=== PATIENT | female | born 1985 | race African-American/Black ===

== ENCOUNTER 2017-09-19 03:32 | Emergency (ER) | payer SELFPAY ==
[~2017-09-19] VITALS: Ht 154.9 cm; Wt 46.8 kg
[~2017-09-19 03:32] MED LIST: Z.0.NO CURRENT MEDS
[2017-09-19 03:36] VITALS: BP 167/82; PULSE 101; RESP 18; TEMP 98.3; O2SAT 100
[2017-09-19 03:53] VITALS: BP 163/91; PULSE 93; RESP 16; O2SAT 100
--- NOTE | 2017-09-19 04:23 | PD ---
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 There was no vertigo, simply lightheaded. She apparently had an elevated blood pressure at work and, after rest, she was sent to the emergency department. She states she is getting over a cold and has a mild cough but no nausea, fever, headache, shortness of breath or chest pain. She denies any focal neurologic change. She states she has been drinking plenty of liquids and is not dehydrated. She denies any sore throat or ear pain. The patient is on her period and the patient does have heavy periods. In this part of her menstrual period, day 3 she does not normally get lightheaded. She occasionally gets lightheaded on day 1 of her menstrual period. She has been replacing her fluids with only water. [facility] Past Medical History Medical History: Denies Significant Hx Diminished Hearing: No Immunizations Current: Yes Tetanus Vaccination: Never Vaccinated Influenza Vaccination: No ?: Not LMP: 09/16/17 : 2 Para: 2 Miscarriage: 0 : 0 Tubal Ligation: Yes (2007) Past Surgical History Section: Yes (2007) Social History Alcohol Use: No Tobacco Use: No Substance Use: No Allergies-Medications (Allergen,Severity, Reaction): Coded Allergies: amoxicillin (Unverified Allergy, Severe, HIVES, 01/20/17) Reported Meds & Prescriptions Reported Meds & Active Scripts Active Reported No [facility] Med[facility] (Miscellaneous Medication) [facility] Review of Systems Except as stated in HPI: all other systems reviewed are Neg Physical Exam Narrative GENERAL: Well-nourished, well-developed patient in no apparent distress. Her vital signs initially showed blood pressure 167/82 but repeat is 148/82. The heart rate initially is 101 but the patient now has a heart rate in the 70s. Her oximetry is 100%. SKIN: Focused skin assessment warm/dry. HEAD: Normocephalic. EYES: No scleral icterus. No injection or drainage. NECK: Supple, trachea midline. No JVD or lymphadenopathy. CARDIOVASCULAR: Regular rate and rhythm without murmurs, gallops, or rubs. RESPIRATORY: Breath sounds equal bilaterally. No accessory muscle use. Lungs clear to auscultation bilaterally. GASTROINTESTINAL: Abdomen soft, non-tender, nondistended. MUSCULOSKELETAL: No cyanosis, or edema. BACK: Nontender without obvious deformity. No CVA tenderness. Data Data Last Documented VS Vital Signs Date Time Temp Pulse Resp B/P (MAP) Pulse Ox O2 Delivery O2 Flow Rate FiO2 09/19/17 04:26 74 16 128/89 (102) 74 16 153/88 (109) 86 16 146/87 (106) 09/19/17 03:53 100 Room Air 09/19/17 03:36 98.3 Orders Orders Electrocardiogram (09/19/17 04:02) Orthostatic Vital Signs (09/19/17 04:02) Urinalysis - C+S If Indicated (09/19/17 04:23) Complete Blood Count With Diff (09/19/17 04:45) Basic Metabolic Panel (Bmp) (09/19/17 04:45) Labs Laboratory Tests Test 09/19/17 04:23 09/19/17 04:53 Urine Color YELLOW Urine Turbidity CLEAR Urine pH 7.0 Urine Specific [place] LESS/EQUAL 1.005 Urine Protein NEG mg/dL Urine Glucose (UA) NEG mg/dL Urine Ketones NEG mg/dL Urine Occult Blood LARGE Urine Nitrite NEG Urine Bilirubin NEG Urine Urobilinogen 0.2 MG/DL Urine Leukocyte Esterase NEG Urine RBC 0-3 /hpf Urine WBC 0-2 /hpf Urine Squamous Epithelial Cells 0-5 /hpf Urine Bacteria NONE /hpf Microscopic Urinalysis Comment CULT NOT INDICATED White Blood Count 5.4 TH/MM3 Red Blood Count 4.00 MIL/MM3 Hemoglobin 11.3 GM/DL Hematocrit 34.8 % Mean Corpuscular Volume 87.0 FL Mean Corpuscular Hemoglobin 28.2 PG Mean Corpuscular Hemoglobin Concent 32.4 % Red Cell Distribution Width 13.1 % Platelet Count 304 TH/MM3 Mean Platelet Volume 7.7 FL Neutrophils (%) (Auto) 61.7 % Lymphocytes (%) (Auto) 25.8 % Monocytes (%) (Auto) 10.0 % Eosinophils (%) (Auto) 1.9 % Basophils (%) (Auto) 0.6 % Neutrophils # (Auto) 3.4 TH/MM3 Lymphocytes # (Auto) 1.4 TH/MM3 Monocytes # (Auto) 0.5 TH/MM3 Eosinophils # (Auto) 0.1 TH/MM3 Basophils # (Auto) 0.0 TH/MM3 CBC Comment DIFF FINAL Differential Comment Blood Urea Nitrogen 15 MG/DL Creatinine 0.90 MG/DL Random Glucose 105 MG/DL Calcium Level 8.8 MG/DL Sodium Level 139 MEQ/L Potassium Level 3.8 MEQ/L Chloride Level 107 MEQ/L Carbon Dioxide Level 26.2 MEQ/L Anion Gap 6 MEQ/L Estimat Glomerular Filtration Rate 89 ML/MIN MDM Medical Decision Making Medical Screen Exam Complete: Yes Emergency Medical Condition: Yes Medical Record Reviewed: Yes Interpretation(s) Orthostatics lying down show pulse rate of 74 with blood pressure 128/89 and respirations 16 and 100% oximetry. Sitting up the patient did have positive lightheadedness with a blood pressure 153/88, pulse rate of 7416 respirations and 100% standing the patient did not get lightheaded, her blood pressure is 146 /87, pulse rate of 86 with respirations 16 and 100% oximetry. The urine shows yellow color which is very light yellow and clear turbidity and specific gravity less than or equal to 1.005. There is a large amount of occult blood and 0-3 red cells with 0-2 white cells no bacteria and culture is not indicated. The basic metabolic profile is normal. Differential Diagnosis Dehydration, postural hypotension, uncontrolled blood pressure, viral syndrome, other infectious Narrative Course The patient prefers any blood work an EKG be done at her doctor's office. The patient's orthostatics did not show any significant blood pressure drop or increase in pulse but she did get lightheaded going from the lying to sitting position. She never experienced vertigo. The blood pressure is only minimally elevated. And the diastolic consistently seems to be running around 82. She does have a mild nonproductive cough which he states is left over from her viral illness last week. Plan: The patient was given a work excuse to return after cleared by her primary care physician. It is likely that her primary care physician will see her on Wednesday or Wednesday. Diagnosis Primary Impression: Lightheadedness Additional Instructions: As we discussed, follow-up with Dr. Pham. You will get a work excuse excusing him until cleared by Dr. Pham. Med/Other Pt SpecificInfo: No Change to Meds Disposition: 01 DISCHARGE HOME Condition: Stable Sam Nelson MD Sep 19, 2017 04:23
[2017-09-19 04:26] VITALS: BP_SYST 128; BP_SYST 146; BP_SYST 153; BP_DIAS 87; BP_DIAS 88; BP_DIAS 89; RESP 16
[2017-09-19 04:33] LABS: BILIRUBIN, URINE NEG (NEG); BLOOD, URINE LARGE (NEG); GLUCOSE,URINE NEG (NEG); KETONE, URINE NEG (NEG); NITRITE,URINE NEG (NEG); URINE COLOR YELLOW (YELLW/STRAW); URINE LEUKOCYTE ESTERASE NEG (NEG)
[2017-09-19 04:39] LABS: RBC, URINE 0-3 /hpf (0-3); SQUAMOUS EPITHELIAL CELL URINE 0-5 /hpf (0-5); WBC, URINE 0-2 /hpf (0-5)
[2017-09-19 04:57] LABS: AUTOMATED NEUTROPHIL # 3.4 TH/MM3 (1.8-7.7); BASOPHIL % 0.6 % (0.0-2.0); EOSINOPHIL # 0.1 TH/MM3 (0-0.4); EOSINOPHIL % 1.9 % (0.0-4.0); HEMATOCRIT 34.8 % (35.0-46.0); HEMOGLOBIN 11.3 GM/DL (11.6-15.3); LYMPH % 25.8 % (9.0-44.0); LYMPHOCYTE # 1.4 TH/MM3 (1.0-4.8); MEAN CORPUSCULAR HEMOGLOBIN 28.2 PG (27.0-34.0); MEAN CORPUSCULAR HGB CONC 32.4 % (32.0-36.0); MEAN PLATELET VOLUME 7.7 FL (7.0-11.0); MONOCYTE # 0.5 TH/MM3 (0-0.9); NEUT % 61.7 % (16.0-70.0); PLATELET COUNT 304 TH/MM3 (150-450); RED CELL DISTRIBUTION WIDTH 13.1 % (11.6-17.2); WHITE BLOOD COUNT 5.4 TH/MM3 (4.0-11.0)
[2017-09-19 05:08] LABS: BICARBONATE 26.2 MEQ/L (21.0-32.0); CALCIUM 8.8 MG/DL (8.5-10.1)
[2017-09-19 05:12] LABS: CREATININE 0.9 MG/DL (0.50-1.00)
[2017-09-19 05:38] VITALS: BP 145/94; PULSE 79; RESP 16; TEMP 98.7; O2SAT 100
== END 2017-09-19 05:42 | disposition home or self-care (01) ==
LOC: PHED 03:32
DX: R42 Dizziness and giddiness (principal); R05 Cough; R03.0 Elevated blood-pressure reading, without diagnosis of hypertension; Z88.0 Allergy status to penicillin
CPT/HCPCS: 80048; 81001; 85025; 99284